=== PATIENT | male | born 1960 | race Caucasian/White ===

== ENCOUNTER → 2020-12-15 16:03 | Outpatient (CLI) | payer BC, SELFPAY ==
--- NOTE | ~2020-12-15 | XR_ITS ---
XR wrist RT min 3V 12/15/2020 16:42 Indication: Left wrist pain Procedure: 4 views left wrist Comparison: No prior studies for comparison. Findings: There is chondrocalcinosis. There are mild degenerative changes of the triscaphe and first MCP joints. No fracture or traumatic malalignment. No erosive changes. Scaphoid appears to be intact. No focal soft tissue swelling. No foreign bodies. Impression: 1: Mild polyarticular osteoarthritis with chondrocalcinosis. Reviewed, dictated and finalized at location A. ZEN PARTICIPATION SPECIALIST Impression: 1: Mild polyarticular osteoarthritis with chondrocalcinosis.
== END ==
PROVIDERS: PCP Family Medicine; Visit Provider Family Medicine
DX: M19.032 Primary osteoarthritis, left wrist (principal)
CPT/HCPCS: 73110

== ENCOUNTER → 2021-06-23 01:36 | Outpatient (CLI) | payer BC, SELFPAY ==
[2021-06-23 19:39] LABS: SARS-CoV-2 RNA PCR Negative
== END ==
PROVIDERS: PCP Family Medicine; Visit Provider Family Medicine
DX: R68.89 Other general symptoms and signs (principal); Z20.822 Contact with and (suspected) exposure to COVID-19
CPT/HCPCS: C9803; U0003; U0005

== ENCOUNTER 2021-12-11 19:58 | Emergency (ER) | payer BC, SELFPAY ==
[2021-12-11] VITALS (19 sets, daily range): BP systolic 146–169; BP diastolic 84–103; PULSE 65–88; RESP 9–17; TEMP 36.3–36.7; O2SAT 97–100
--- NOTE | ~2021-12-11 | CT_ITS ---
EXAMINATION: CT brain wo con DATE: 12/11/2021 20:54 INDICATION: Dizziness. Unsteady gait. Vomiting. TECHNIQUE: Computed tomography (CT) of the head was performed without intravenous contrast. Sagittal and coronal reconstructions were performed. The mA was adjusted according to patient size. Iterative reconstruction technique was employed. The dose-length product was 681.00 mGy-cm. COMPARISON: Brain MR dated 03/04/2013 FINDINGS: No acute intracranial hemorrhage, acute infarction or abnormal extra axial fluid collection. There is minimal scattered white matter hypoattenuation consistent with chronic small vessel ischemic disease . Ventricles are normal and symmetric. No mass/mass effect. The orbits, paranasal sinuses and mastoi d air cells are normal. IMPRESSION: 1. No acute intracranial process. 2. Minimal scattered white matter hypoattenuation consistent with chronic small vessel ischemic disea se. Reviewed, dictated and finalized at location A. E DATA SPECIALIST IMPRESSION: 1. No acute intracranial process. 2. Minimal scattered white matter hypoattenuation consistent with chronic small vessel ischemic disease.
--- NOTE | 2021-12-11 20:20 | ECG_ITS ---
Measurements Intervals [place] Rate: 66 P: 69 AL: 204 QRS: 62 QRSD: 94 T: 48 QT: 411 QTc: 433 Interpretive Statements SINUS RHYTHM NORMAL ECG NO PREVIOUS ECG AVAILABLE FOR COMPARISON Electronically Signed On 12-12-2021 14:52:02 OPAL POLISHER by Dean Alcocer M.D.
[2021-12-11 20:29] LABS: Basophils Percent Auto 0.5 % (0.2-1.2); Eosinophils Absolute Auto 0.2 K/mm3 (0-0.3); Eosinophils Percent Auto 2.7 % (0-4.4); Hematocrit 42.2 % (42.0-52.0); Hemoglobin 14.6 g/dL (14.0-18.0); Immature Granulocyte Absolute 0.01 K/mm3 (0.00-0.031); Immature Granulocyte Percent A 0.2 % (0-0.5); Lymphocytes Absolute Auto 2.13 K/mm3 (0.9-3.2); Lymphocytes Percent Auto 35.6 % (18.3-44.2); Mean Corpuscular HGB Conc 34.6 g/dl (32-36); Mean Corpuscular Hemoglobin 31.3 pg (26-34); Mean Corpuscular Volume 90.6 fl (80-100); Mean Platelet Volume 9.9 fl (7.4-10.4); Monocytes Absolute Auto 0.6 K/mm3 (0.1-0.6); Monocytes Percent Auto 10.7 % (2.6-8.5); Neutrophils Percent Auto 50.3 % (45.5-73.1); Platelet Count Result 220 k/mm3 (150-375); Red Blood Count 4.66 M/mm3 (4.6-6.20); Red Cell Distribution Width 12.4 % (11.5-14.5)
--- NOTE | 2021-12-11 20:36 | ED.DIZZY ---
HPI - Dizziness General Chief Complaint: Dizziness Stated Complaint: loss of balance Time Seen by Provider: 12/11/21 20:15 Source: patient Mode of arrival: ambulatory Limitations: no limitations History of Present Illness HPI Narrative: Patient is a 7-year-old male complaining of dizziness, worse with head movement accompanied by unsteady gait and nausea that started today. Patient denies any similar events in the past. Patient denies any speech or visual disturbance, headache, focal weakness or numbness, chest pain, shortness of breath, abdominal pain, vomiting, diarrhea, fever or chills. Related Data Home Medications Medication Instructions Recorded Confirmed celecoxib [Celebrex] 200 mg PO DIRECTED 12/11/21 Allergies Allergy/AdvReac Type Severity Reaction Status Date / Time No Known Allergies Allergy Verified 12/11/21 20:16 Review of Systems Review of Systems: All systems reviewed & are unremarkable except as noted in HPI and below Constitutional: Constitutional: Denies body ache(s), Denies chills, Denies excessive sweating, Denies fatigue, Denies fever(s), Denies headache(s), Denies lethargy, Denies malaise, Denies weakness and Denies weight loss Eyes: Eyes: Denies blurry vision, Denies change in vision and Denies loss of vision ENT: Denies ear discharge, Denies headache(s), Denies lip swelling, Denies epistaxis, Denies nasal congestion, Denies neck pain, Denies throat swelling and Denies tongue swelling Cardiovascular: Cardiovascular: Denies chest pain, Denies chest pain at rest, Denies chest pain with activity, Denies diaphoresis, Denies rapid heart rate, Denies edema, Denies irregular heart rhythm, Denies lightheadedness, Denies palpitations, Denies dyspnea and Denies dyspnea on exertion Respiratory: Respiratory: Denies chest congestion, Denies cough, Denies hemoptysis, Denies dyspnea and Denies dyspnea on exertion Gastrointestinal: Gastrointestinal: Denies abdominal pain, Denies melena, Denies hematochezia, Denies diarrhea, Denies vomiting and Denies hematemesis Musculoskeletal: Musculoskeletal: Denies abnormal gait, Denies deformity, Denies joint swelling, Denies limited range of motion, Denies neck pain and Denies numbness Neurologic: Denies Abnormal speech present, Denies abnormal gait, Denies confusion, Denies headache(s), Denies focal weakness, Denies loss of vision, Denies numbness, Denies Other visual disturbances, Denies Sensory deficit (Neuro) and Denies weakness Psychiatric: Psychiatric: Denies confusion, Denies depression, Denies auditory hallucinations, Denies homicidal ideation and Denies suicidal ideation Endocrine: Endocrine: Denies cold intolerance, Denies excessive sweating, Denies fatigue, Denies heat intolerance and Denies palpitations Hematologic/Lymphatic: Hematologic/Lymphatic: Denies easy bleeding and Denies easy bruising Allergic/Immunologic: Allergic/Immunologic: Denies lip swelling, Denies throat swelling and Denies tongue swelling PMFSH Past Medical History Medical History BMI 25.0-25.9,adult BMI 26.0-26.9,adult BMI 27.0-27.9,adult Changing skin lesion Erectile dysfunction Left wrist pain Mixed hyperlipidemia Right knee pain Screening for prostate cancer Sleep apnea, unspecified Type 2 diabetes mellitus with hyperglycemia, with long-term current use of insulin Type 2 diabetes mellitus with insulin therapy Family History Family History Father Family history of coronary artery disease Family history of lung cancer Family history of malignant neoplasm Sibling Family history of thyroid disease Mother No problems noted. Other Diabetes mellitus Social History Social History Second hand tobacco smoke exposure: No Alcohol intake: current Exam Const: General: cooperati
[2021-12-11] MEDS: PROMETHAZINE HCL 25 MG/ML AMPUL 12.5 MG IV PUSH (20:37)
[2021-12-11 20:41] LABS: Alanine Aminotransferase 27 U/L (4-50); Albumin Level 4.6 g/dL (3.5-5.1); Alkaline Phosphatase 61 U/L (38-126); Anion Gap 7 mmol/L (8-16); Aspartate Amino Transferase 37 U/L (17-59); Bilirubin,Total 0.4 mg/dL (0.2-1.3); Blood Urea Nitrogen 14 mg/dL (9-20); Calcium 9.3 mg/dL (8.4-10.2); Carbon Dioxide 30 mmol/L (22-30); Chloride 105 mmol/L (98-107); Estimated CRCL calculation 85 ml/min; Estimated Glomerular Filt Rate > 60; Glucose 62 mg/dL (65-110); Potassium 3.2 mmol/L (3.4-5.0); Sodium 142 mmol/L (137-145)
[2021-12-11] MEDS: DEXTROSE 50% 25 GM/50 ML SYRINGE IV PUSH (21:00)
--- NOTE | 2021-12-11 21:00 | PC.NURSE ---
Patien glucose was l62. Patient given juice prior to going to CT. While in CT patient vomitted. EDP Diann made aware. D50 ordered. Keep patient NPO.
[2021-12-11 21:12] LABS: Glucose Point of Care 230 mg/dl (65-105)
[2021-12-11] MEDS: POTASSIUM CHLORIDE 20 MEQ PACKET (FOR LIQUID) 40 MEQ PO (23:08)
== END 2021-12-11 23:35 | disposition home or self-care (01) ==
PROVIDERS: Emergency Provider Emergency Medicine; PCP Family Medicine
DX: E11.649 Type 2 diabetes mellitus with hypoglycemia without coma (principal); R42 Dizziness and giddiness; R26.81 Unsteadiness on feet; E78.2 Mixed hyperlipidemia; G47.30 Sleep apnea, unspecified; Z79.4 Long term (current) use of insulin
CPT/HCPCS: 36415; 70450; 80053; 82948; 85025; 93005; 96374; 96375; 99284; A9270; J2550

== ENCOUNTER 2023-08-22 09:27 | Outpatient (CLI) | payer BC, SELFPAY ==
--- NOTE | ~2023-08-22 | XR_ITS ---
Clinical Indication: Chest pain PA and lateral views of the chest: Comparison: 07/23/2013 Findings: The lungs are clear, without evidence of focal consolidation or pleural effusion. Cardiome diastinal silhouette is within normal limits. Bones and soft tissues are unremarkable. Impression: Normal chest. Reviewed, dictated and finalized at location . LD OPERATOR Impression: Normal chest.
== END 2023-08-22 09:28 | disposition home or self-care (01) ==
PROVIDERS: PCP Family Medicine; Visit Provider Family Medicine
DX: R07.89 Other chest pain (principal)
CPT/HCPCS: 71046

== ENCOUNTER 2023-09-03 15:01 | Outpatient (CLI) | payer BC, SELFPAY ==
--- NOTE | ~2023-09-03 | CT_ITS ---
CT Scan of the Chest without Contrast: Clinical Indication: Chest pain Technique: Contiguous sections were acquired throughout the chest without intravenous contrast. Dose reduction technique was used on this scan by utilizing automated exposure control and iterative recon struction technique. The dose-length product (DLP) was 235.44 mGy-cm. Findings: There is no evidence of any significant mediastinal, hilar or axillary lymphadenopathy. The mediastin al soft tissues appear normal. There is no evidence of pleural or pericardial effusion. The lungs are clear. No pulmonary nodules or infiltrates are noted. Images through the upper abdomen reveal no abnormalities. Impression: No significant abnormalities seen. Reviewed, dictated and finalized at location . SECRECY ACT OFFICER Impression: No significant abnormalities seen.
== END 2023-09-03 15:02 | disposition home or self-care (01) ==
PROVIDERS: PCP Family Medicine; Visit Provider Family Medicine
DX: R07.89 Other chest pain (principal)
CPT/HCPCS: 71250

== ENCOUNTER 2023-09-20 14:39 | Outpatient (CLI) | payer BC, SELFPAY ==
--- NOTE | ~2023-09-20 | MR_ITS ---
EXAMINATION: MR thoracic spine wo con DATE: 09/20/2023 15:52 INDICATION: Scoliosis, unspecified. TECHNIQUE: Magnetic resonance imaging (MRI) of the thoracic spine was performed without intravenous c ontrast. COMPARISON: Chest CT 09/03/2023 FINDINGS: There is 6 degrees dextrocurvature of upper thoracic spine. Vertebral body heights are norm al. There is mildly decreased disc height from T3-T4 through T8-T9. There is multilevel facet joint o steoarthritis, severe at a few levels in upper thoracic spine. On the right, there is mild neural for aminal stenosis at T1-T2, T2-T3, and T3-T4. On the left, there is mild neural foraminal stenosis at T 5-T6. At T3-T4, there is a right central protrusion with mild central canal stenosis and ventral inde ntation of the spinal cord. At T4-T5, there is a central protrusion with mild central canal stenosis and ventral indentation of the spinal cord. At T7-T8, disc is bulging with mild central canal stenosi s and ventral indentation of the spinal cord. At T9-T10, there is a central extrusion with mild centr al canal stenosis. The spinal cord signal intensity is normal. The conus medullaris is at T12-L1. IMPRESSION: 1. Mild thoracic spondylosis. Reviewed, dictated and finalized at location E. OPERATION MANAGER
== END 2023-09-20 14:40 | disposition home or self-care (01) ==
PROVIDERS: PCP Family Medicine; Visit Provider Family Medicine
DX: M43.04 Spondylolysis, thoracic region (principal)
CPT/HCPCS: 72146

== ENCOUNTER 2024-07-14 12:19 | Outpatient (CLI) | payer BC, SELFPAY ==
--- NOTE | ~2024-07-14 | US_ITS ---
EXAMINATION: US thyroid DATE: 07/14/2024 12:55 INDICATION: Thyrotoxicosis, unspecified without thyrotoxic crisis. TECHNIQUE: Multiple ultrasound images of the thyroid were obtained. COMPARISON: None. FINDINGS: The right thyroid lobe measures 4.3 x 1.3 x 1.8 cm. The left thyroid lobe measures 3.7 x 1.3 x 1.3 c m. There is normal echotexture and echogenicity throughout the thyroid gland. No discrete nodules id entified. Normal vascular flow is present. IMPRESSION: 1. Normal thyroid. Reviewed, dictated and finalized at location A. IMPRESSION: 1. Normal thyroid.
== END 2024-07-14 12:20 | disposition home or self-care (01) ==
PROVIDERS: PCP Family Medicine; Visit Provider Family Medicine
DX: E05.90 Thyrotoxicosis, unspecified without thyrotoxic crisis or storm (principal); R94.6 Abnormal results of thyroid function studies
CPT/HCPCS: 76536

== ENCOUNTER 2025-02-11 15:43 | Outpatient (CLI) | payer OTHER, SELFPAY ==
--- NOTE | ~2025-02-11 | US_ITS ---
Thyroid ultrasound. Clinical History: Thyrotoxicosis COMPARISON: 07/14/2024 Findings: Real-time sonography of the thyroid gland was performed. The right lobe measures 4.7 x 1.3 x 1.1 cm. The left lobe measures 3.8 x 1.3 x 1.4 cm. The isthmus is 3 mm in AP diameter. There is a 3 mm hypoechoic nodule at the central aspect of the left thyroid lobe. Impression: 3 mm left thyroid nodule. Given small size, no further follow-up required. Reviewed, dictated and finalized at location M. Impression: 3 mm left thyroid nodule. Given small size, no further follow-up required.
== END 2025-02-11 15:44 | disposition home or self-care (01) ==
LOC: MICIMG 15:43
PROVIDERS: PCP Internal Medicine; Visit Provider Internal Medicine
DX: E04.1 Nontoxic single thyroid nodule (principal); E05.90 Thyrotoxicosis, unspecified without thyrotoxic crisis or storm; R94.6 Abnormal results of thyroid function studies
CPT/HCPCS: 76536